=== PATIENT | male | born 1965 | race Caucasian/White ===

== ENCOUNTER 2017-10-16 17:33 | Observation (INO) | payer OTHER ==
[2017-10-16 17:36] VITALS: BP 146/94; PULSE 116; RESP 20; TEMP 98.7; O2SAT 98
[2017-10-16] MEDS ORDERED: LISI20TA (17:46)
[2017-10-16] MEDS ORDERED: PRAV40TA PO (17:46)
[2017-10-16] MEDS ORDERED: ASPI-516 CHEW (17:46)
[2017-10-16 17:53] VITALS: BP_SYST 131; BP_SYST 137; BP_DIAS 62; BP_DIAS 63; PULSE 114; PULSE 115; RESP 15; TEMP 98.1; O2SAT 99
--- NOTE | 2017-10-16 17:57 | PD ---
HPI Chief Complaint: Cardiac Complaint Time Seen by Provider: 17:42 Travel History International Travel<30 days: No Contact w/Intl Traveler<30days: No Traveled to known affect area: No History of Present Illness HPI Patient comes to the emergency department complaining of left-sided substernal chest pain I began shortly prior to arrival. Patient reports that he had just got done eating was walking down by the beach when symptoms began. Describes pain as a sudden sharp pain that only lasted briefly without radiation. Patient states he has associated shortness of breath, left arm tingling, and palpitations. Patient states that he did not take his aspirin last night but he did take a baby aspirin this morning and then took 2 more 81 mg aspirin prior to coming to the emergency department in case this was secondary to his heart. Patient reports symptoms have improved since initial onset. Denies anything making it better or worse. Patient did just recently find out from [place] 2 days ago. Patient denies any cardiac history or ever having a stress test. Patient reports sunburn came on yesterday. PFSH Past Medical History High Cholesterol: Yes Diminished Hearing: No Hypertension: Yes Tetanus Vaccination: < 5 Years Influenza Vaccination: No Past Surgical History Appendectomy: Yes Social History Alcohol Use: Yes (EVERYDAY) Tobacco Use: No Substance Use: No Allergies-Medications (Allergen,Severity, Reaction): Coded Allergies: No Known Allergies (Verified Allergy, Unknown, 10/16/17) Reported Meds & Prescriptions Reported Meds & Active Scripts Active Reported Pravachol (Pravastatin) 40 Mg Tab 40 Mg PO DAILY Aspirin 81 Mg Chew 81 Mg CHEW DAILY Lisinopril-Hctz 20-12.5 mg Tab (Lisinopril/Hydrochlorothiazide) 20 Mg-12.5 Mg Tablet Review of Systems Except as stated in HPI: all other systems reviewed are Neg Physical Exam Narrative GENERAL: Well-developed, overly nourished, in no acute distress, and non-ill appearing. SKIN: Sunburn noted upper chest and face. No blistering. Mildly tender. HEAD: Atraumatic. Normocephalic. EYES: Pupils equal and round. EOMI. No scleral icterus. No injection or drainage. ENT: No nasal bleeding or discharge. Mucous membranes pink and moist. NECK: Trachea midline. Supple. No nuclear rigidity. CARDIOVASCULAR: Regular rate and rhythm. No murmur appreciated. RESPIRATORY: No accessory muscle use. No respiratory distress. Clear to auscultation. Breath sounds equal bilaterally. GASTROINTESTINAL: Abdomen soft, non-tender, nondistended, and no guarding. Hepatic and splenic margins not palpable. Normal bowel sounds x4. No pulsatile mass. MUSCULOSKELETAL: No obvious deformities. No clubbing. No cyanosis. No edema. Full range of motion. NEUROLOGICAL: Awake and alert. No obvious cranial nerve deficits. Motor grossly within normal limits. Normal speech. PSYCHIATRIC: Appropriate mood and affect; insight and judgment normal. Data Data Last Documented VS Vital Signs Date Time Temp Pulse Resp B/P (MAP) Pulse Ox O2 Delivery O2 Flow Rate FiO2 10/16/17 19:08 109 18 154/68 (96) 98 Room Air 10/16/17 17:53 98.1 Orders Orders Electrocardiogram (10/16/17 ) Electrocardiogram (10/16/17 17:46) Basic Metabolic Panel (Bmp) (10/16/17 17:46) Ckmb (Isoenzyme) Profile (10/16/17 17:46) Complete Blood Count With Diff (10/16/17 17:46) Magnesium (Mg) (10/16/17 17:46) Prothrombin Time / Inr (Pt) (10/16/17 17:46) Act Partial Throm Time (Ptt) (10/16/17 17:46) Troponin I (10/16/17 17:46) Ecg Monitoring (10/16/17 17:46) Bilateral Bp Monitoring (10/16/17 17:46) Iv Access Insert/Monitor (10/16/17 17:46) Oximetry (10/16/17 17:46) Oxygen Administration (10/16/17 17:46) Sodium Chloride 0.9% Flush (Ns Flush) (10/16/17 18:00) Ct Pulmonary Angiogram (10/16/17 17:46) Chest, Pa & Lat (10/16/17 17:46) CKMB (10/16/17 17:50) CKMB% (10/16/17 17:50) Iohexol 350 Inj (Omnipaque 350 Inj) (10/16/17 18:59) Sodium Chlor 0.9% 1000 Ml Inj (Ns 1000 M (10/16/17 20:00) Admit Order (Ed Use Only) (10/16/17 ) Water Team Leader / Telemetry SOFÍA.Q8H (10/16/17 19:48) Vital Signs (Adult) Q4H (10/16/17 19:48) Notify Dr: Other (10/16/17 19:48) Activity Bed Rest With Brp (10/16/17 19:48) Vital Signs (Adult) Q4H (10/16/17 19:48) Cardiac Rhythm .As Directed (10/16/17 19:48) Notify Dr: Other .PRN (10/16/17 19:48) Notify Parameters (10/16/17 19:48) Resp Oxygen Nasal Cannula (10/16/17 ) Ckmb (Isoenzyme) Profile (10/16/17 20:50) Ckmb (Isoenzyme) Profile (10/16/17 23:50) Troponin I (10/16/17 20:50) Troponin I (10/16/17 23:50) Electrocardiogram (10/16/17 20:50) Electrocardiogram (10/16/17 23:50) ^ Obtain (10/16/17 19:48) Sodium Chloride 0.9% Flush (Ns Flush) (10/16/17 21:00) Nitroglycerin Sl (Nitrostat Sl) (10/16/17 20:00) Water Team Leader / Telemetry SOFÍA.Q8H (10/16/17 19:48) Labs Laboratory Tests Test 10/16/17 17:50 White Blood Count 20.4 TH/MM3 Red Blood Count 4.65 MIL/MM3 Hemoglobin 14.8 GM/DL Hematocrit 41.1 % Mean Corpuscular Volume 88.6 FL Mean Corpuscular Hemoglobin 31.8 PG Mean Corpuscular Hemoglobin Concent 35.9 % Red Cell Distribution Width 12.7 % Platelet Count 324 TH/MM3 Mean Platelet Volume 7.0 FL Neutrophils (%) (Auto) 87.1 % Lymphocytes (%) (Auto) 5.1 % Monocytes (%) (Auto) 7.0 % Eosinophils (%) (Auto) 0.5 % Basophils (%) (Auto) 0.3 % Neutrophils # (Auto) 17.8 TH/MM3 Lymphocytes # (Auto) 1.0 TH/MM3 Monocytes # (Auto) 1.4 TH/MM3 Eosinophils # (Auto) 0.1 TH/MM3 Basophils # (Auto) 0.1 TH/MM3 CBC Comment DIFF FINAL Differential Comment Prothrombin Time 10.2 SEC Prothromb Time International Ratio 1.0 RATIO Activated Partial Thromboplast Time 25.4 SEC Blood Urea Nitrogen 15 MG/DL Creatinine 0.96 MG/DL Random Glucose 112 MG/DL Calcium Level 8.9 MG/DL Magnesium Level 1.8 MG/DL Sodium Level 133 MEQ/L Potassium Level 3.4 MEQ/L Chloride Level 99 MEQ/L Carbon Dioxide Level 23.0 MEQ/L Anion Gap 11 MEQ/L Estimat Glomerular Filtration Rate 83 ML/MIN Total Creatine Kinase 111 U/L Creatine Kinase MB 1.4 NG/ML Troponin I LESS THAN 0.02 NG/ML Exceptions Acute Myocardial Infarction ASA Not Given on Arrival: Already taken by patient MDM Medical Decision Making Medical Screen Exam Complete: Yes Emergency Medical Condition: Yes Interpretation(s) EKG reviewed by Dr. Drake shows sinus tachycardia with ventricular rate of 114. No STEMI. Differential Diagnosis Acute coronary syndrome, arrhythmia, dehydration, PE, angina Narrative Course Patient was seen and examined. IV was established patient placed on cardiac monitoring. Initial laboratory radiological studies were ordered. Discussed all findings and plan of care with patient who is agreeable for admission to the chest pain center. All questions were answered. Discussed patient with Dr. Drake, who is in agreement plan of care and disposition. Patient does have an elevated white blood cell count that I suspect is secondary to patient' s sunburn as patient's chest x-ray and CT are both negative and patient denies any urinary symptoms. Patient was hydrated with IV fluid 1 L normal saline. Patient remained stable throughout ED course. Diagnosis Primary Impression: Chest pain Qualified Codes: R07.9 - Chest pain, unspecified Additional Impression: Sunburn Admitting Information Admitting Physician Requests: Observation Condition: Stable Colby Thompson October 16, 2017 17:57
[2017-10-16] MEDS ORDERED: SODIUM CHLORIDE 0.9% FLUSH 10 ML FLUSH IVF PRN (18:00)
[2017-10-16 18:20] LABS: AUTOMATED NEUTROPHIL # 17.8 TH/MM3 (1.8-7.7); BASOPHIL # 0.1 TH/MM3 (0-0.2); BASOPHIL % 0.3 % (0.0-2.0); EOSINOPHIL # 0.1 TH/MM3 (0-0.4); EOSINOPHIL % 0.5 % (0.0-4.0); HEMATOCRIT 41.1 % (39.0-51.0); HEMOGLOBIN 14.8 GM/DL (13.0-17.0); LYMPH % 5.1 % (9.0-44.0); MEAN CELL VOLUME 88.6 FL (80.0-100.0); MEAN CORPUSCULAR HEMOGLOBIN 31.8 PG (27.0-34.0); MEAN CORPUSCULAR HGB CONC 35.9 % (32.0-36.0); MONOCYTE # 1.4 TH/MM3 (0-0.9); NEUT % 87.1 % (16.0-70.0); PLATELET COUNT 324 TH/MM3 (150-450); RED BLOOD COUNT 4.65 MIL/MM3 (4.50-5.90); RED CELL DISTRIBUTION WIDTH 12.7 % (11.6-17.2); WHITE BLOOD COUNT 20.4 TH/MM3 (4.0-11.0)
[2017-10-16 18:36] LABS: PROTHROMBIN TIME - PATIENT 10.2 SEC (9.8-11.6)
[2017-10-16 18:41] LABS: BLOOD UREA NITROGEN 15 MG/DL (7-18); CALCIUM 8.9 MG/DL (8.5-10.1); CHLORIDE 99 MEQ/L (98-107); CREATININE 0.96 MG/DL (0.60-1.30); GLOMERULAR FILTRATION RATE 83 ML/MIN (>89); GLUCOSE,RANDOM 112 MG/DL (74-106); MAGNESIUM 1.8 MG/DL (1.5-2.5); SODIUM (NA) 133 MEQ/L (136-145)
[2017-10-16 18:44] LABS: TROPONIN I LESS THAN 0.02 NG/ML (0.02-0.05)
--- NOTE | 2017-10-16 18:57 | RADRPT ---
EXAM DATE/TIME: 10/16/2017 18:24 [facility] COMPARISON: No previous studies available for comparison. INDICATIONS : Chest pain. MEDICAL HISTORY : Hypertension. SURGICAL HISTORY : None. ENCOUNTER: Initial ACUITY: 1 day PAIN SCORE: 06/25 LOCATION: Bilateral chest FINDINGS: PA and lateral views of the chest demonstrate the lungs to be symmetrically aerated without evidence of mass, infiltrate or effusion. The cardiomediastinal contours are unremarkable. Osseous structure s are intact. CONCLUSION: No acute disease. Gera Levy MD on October 16, 2017 at 18:52 Board Certified Radiologist. This report was verified electronically.
[2017-10-16] MEDS ORDERED: IOHEXOL 350 MG/ML 10 ML VIAL (for RAD DIAG) IVCONTRAST ONE (18:59)
[2017-10-16 19:08] VITALS: BP 154/68; PULSE 109; RESP 18; O2SAT 98
--- NOTE | 2017-10-16 19:37 | RADRPT ---
EXAM DATE/TIME: 10/16/2017 18:49 [facility] COMPARISON: No previous studies available for comparison. INDICATIONS : Brief episode of chest pain. IV CONTRAST: 69 cc Omnipaque 350 (iohexol) IV RADIATION DOSE: 10.62 CTDIvol (mGy) MEDICAL HISTORY : Hypertension. SURGICAL HISTORY : None. ENCOUNTER: Initial ACUITY: 1 day PAIN SCALE: 0/10 LOCATION: chest TECHNIQUE: Volumetric scanning of the chest was performed using a pulmonary embolism protocol MIP images were re constructed. Using automated exposure control and adjustment of the mA and/or kV according to patien t size, radiation dose was kept as low as reasonably achievable to obtain optimal diagnostic quality images. DICOM format image data is available electronically for review and comparison. Follow-up recommendations for detected pulmonary nodules are based at a minimum on nodule size and pa tient risk factors according to Fleischner Society Guidelines. FINDINGS: No filling defects identified to suggest pulmonary embolic disease. Linear scarring right lower lobe. No effusion. No consolidation. No adenopathy. Mild coronary calcifications. No acute findings in the upper abdomen. CONCLUSION: 1. Negative for pulmonary embolic disease. Scarring right lower lobe. Gera Levy MD on October 16, 2017 at 19:30 Board Certified Radiologist. This report was verified electronically.
[2017-10-16] MEDS ORDERED: NITROGLYCERIN 0.4 MG SL 25 TABS/BTL SL PRN (20:00)
[2017-10-16] MEDS ORDERED: SODIUM CHLOR 0.9% 1000 ML INJ 1,000 ML IV ONE (20:00)
[2017-10-16 20:26] VITALS: O2SAT 98
[2017-10-16] MEDS: SODIUM CHLORIDE 0.9% FLUSH 10 ML FLUSH IV FLUSH SCH (20:56)
[2017-10-16 21:20] VITALS: BP 141/69; PULSE 85; RESP 16; TEMP 98.4; O2SAT 97
[2017-10-16 21:35] LABS: TROPONIN I LESS THAN 0.02 NG/ML (0.02-0.05)
[2017-10-17 00:25] LABS: TROPONIN I LESS THAN 0.02 NG/ML (0.02-0.05)
[2017-10-17 00:46] VITALS: BP 104/51; PULSE 78; RESP 16; TEMP 98.5; O2SAT 93
[2017-10-17 04:12] VITALS: BP 101/55; PULSE 84; RESP 16; TEMP 98; O2SAT 96
[2017-10-17] MEDS ORDERED: ONDANSETRON HCL 4 MG/2 ML VIAL IV PUSH PRN (07:30)
[2017-10-17] MEDS ORDERED: ACETAMINOPHEN 500 MG CPLT PO PRN (07:30)
--- NOTE | 2017-10-17 08:41 | PD.CARD.PN ---
Subjective Subjective Remarks Patient's medical record was reviewed, laboratory work EKG and radiology were reviewed and assessed. The patient was personally seen and examined and assessment and plan establish Discussed with nurse practitioner This is a 51-year-old gentleman visiting in this area with atypical presentation of sharp left chest pain of very brief duration. However aspects of his history did suggest possibility of cardiac etiology along with his history of obesity hyperlipidemia and hypertension. Also noted that he has a fairly high alcohol intake of about 8 beers a day. This was discussed and he was cautioned in this regard. Objective Medications Current Medications Medications (Trade) Dose Ordered Sig/Jair Route Start Time Stop Time Status Last Admin (NS Flush) 2 ml UNSCH PRN IVF 10/16/17 18:00 10/16/17 17:57 (NS Flush) 2 ml BID IV FLUSH 10/16/17 21:00 (Nitrostat Sl) 0.4 mg Q5M PRN SL 10/16/17 20:00 (Tylenol) 500 mg Q4H PRN PO 10/17/17 07:30 (Zofran Inj) 4 mg Q6H PRN IV PUSH 10/17/17 07:30 (Aspirin) 325 mg DAILY PO 10/17/17 09:00 (Pravachol) 40 mg DAILY PO 10/17/17 09:00 UNV (Prinivil) 20 mg ONCE ONCE PO 10/17/17 09:00 10/17/17 09:01 (Microzide) 12.5 mg DAILY PO 10/17/17 09:00 (KCl) 20 meq ONCE ONCE PO 10/17/17 09:00 10/17/17 09:01 Vital Signs / I&O Vital Signs Date Time Temp Pulse Resp B/P (MAP) Pulse Ox O2 Delivery O2 Flow Rate FiO2 10/17/17 04:12 98.0 84 16 101/55 (70) 96 10/17/17 00:46 98.5 78 16 104/51 (68) 93 10/16/17 21:20 98.4 85 16 141/69 (93) 97 10/16/17 21:12 10/16/17 20:26 98 10/16/17 19:08 109 18 154/68 (96) 98 Room Air 10/16/17 17:53 98.1 115 15 137/62 (87) 99 Room Air 10/16/17 17:53 99 Room Air 10/16/17 17:53 98.1 114 15 131/63 (85) 99 Room Air 10/16/17 17:46 118 99 Room Air 10/16/17 17:36 98.7 116 20 146/94 (111) 98 Physical Exam 6 foot 2 300 pound sunburned white male in no acute distress. Chest is clear to auscultation with no rales wheezes or rhonchi Cardiovascular regular sinus rhythm with no gallops rubs or murmurs Remaining exam is as documented Laboratory Laboratory Tests Test 10/16/17 17:50 10/16/17 20:50 10/16/17 23:55 White Blood Count 20.4 TH/MM3 Red Blood Count 4.65 MIL/MM3 Hemoglobin 14.8 GM/DL Hematocrit 41.1 % Mean Corpuscular Volume 88.6 FL Mean Corpuscular Hemoglobin 31.8 PG Mean Corpuscular Hemoglobin Concent 35.9 % Red Cell Distribution Width 12.7 % Platelet Count 324 TH/MM3 Mean Platelet Volume 7.0 FL Neutrophils (%) (Auto) 87.1 % Lymphocytes (%) (Auto) 5.1 % Monocytes (%) (Auto) 7.0 % Eosinophils (%) (Auto) 0.5 % Basophils (%) (Auto) 0.3 % Neutrophils # (Auto) 17.8 TH/MM3 Lymphocytes # (Auto) 1.0 TH/MM3 Monocytes # (Auto) 1.4 TH/MM3 Eosinophils # (Auto) 0.1 TH/MM3 Basophils # (Auto) 0.1 TH/MM3 CBC Comment DIFF FINAL Differential Comment Prothrombin Time 10.2 SEC Prothromb Time International Ratio 1.0 RATIO Activated Partial Thromboplast Time 25.4 SEC Blood Urea Nitrogen 15 MG/DL Creatinine 0.96 MG/DL Random Glucose 112 MG/DL Calcium Level 8.9 MG/DL Magnesium Level 1.8 MG/DL Sodium Level 133 MEQ/L Potassium Level 3.4 MEQ/L Chloride Level 99 MEQ/L Carbon Dioxide Level 23.0 MEQ/L Anion Gap 11 MEQ/L Estimat Glomerular Filtration Rate 83 ML/MIN Total Creatine Kinase 111 U/L 88 U/L 78 U/L Creatine Kinase MB 1.4 NG/ML Troponin I LESS THAN 0.02 NG/ML LESS THAN 0.02 NG/ML LESS THAN 0.02 NG/ML Imaging Last 24 hours Impressions Chest X-Ray 10/16/[id number] Signed Impressions: Service Date/Time: October 18:24 - CONCLUSION: No acute disease. Gera Levy MD CT Angiography [id number]/16/[id number] Signed Impressions: Service Date/Time: October 18:49 - CONCLUSION: 1. Negative for pulmonary embolic disease. Scarring right lower lobe. Gera Levy MD Assessment and Plan Assessment and Plan Will evaluate per standard protocol and perform an exercise stress test. If unremarkable he will be discharged to follow-up on an outpatient basis with his primary care physician Discussed Condition With Discussed with nurse practitioner and with the patient Kash Shaver MD October 17, 2017 08:41
--- NOTE | 2017-10-17 08:41 | HHI.HP ---
HPI Primary Care Physician Primary Care Physician-[place] Chief Complaint Chest pain History of Present Illness 51-year-old male with history of hypertension and hyperlipidemia presents emergency room for further evaluation chest pain. Onset 4 PM yesterday afternoon while walking on beach. Location substernal. Characterized as sharp. No radiation. Severity moderate. Duration seconds. No associated symptoms of nausea, vomiting, dyspnea, diaphoresis, dizziness. No known precipitating or relieving factors. Denies similar pain in the past. Immediately after chest pain developed left arm "tingling." Visiting from [place]. After chest discomfort he walked to [facility], took 2 baby aspirins and 1 of his blood pressure medications, and laid on the bed. [place] as though his heart was "racing" while laying on bed, however also reports anxiety around chest discomfort episode. Notified his brother and they both decided to call paramedics for further evaluation. Remained chest pain free since arriving to hospital. Review of Systems General: No fatigue,weakness, fever, chills, recent illness, or change in appetite. Has been in his general state of health. HEENT: No [place], no vision changes, no nasal congestion or drainage, no dysphasia CV: As stated above. No further chest discomfort episodes or palpitations since first and only chest discomfort yesterday afternoon. RESP: No SOB, cough, or wheeze. GI: No nausea, vomiting, or bowel changes. : No dysuria, urgency, or frequency EXT: No lower leg edema, no paraesthesias MS: No discomfort or change in ROM. History of "throwing my back out" and thinks he may have "thrown back out recently on October 14 after carrying heavy suitcase. NEURO: No difficulty with balance, LOC, motor/sensory deficits PSYCH: No anxiety, depression, or suicidal ideation. Currently situational stress. SKIN: No rashes, no concerning lesions Past Family Social History Allergies: Coded Allergies: No Known Allergies (Verified Allergy, Unknown, 10/16/17) Past Medical History Hyperlipidemia, hypertension Past Surgical History Appendectomy, bilateral biceps repair Reported Medications Reported Meds & Active Scripts Active Reported Pravachol (Pravastatin) 40 Mg Tab 40 Mg PO DAILY Aspirin 81 Mg Chew 81 Mg CHEW DAILY Lisinopril-Hctz 20-12.5 mg Tab (Lisinopril/Hydrochlorothiazide) 20 Mg-12.5 Mg Tablet Active Ordered Medications Current Medications Medications (Trade) Dose Ordered Sig/Jair Route Start Time Stop Time Status Last Admin (NS Flush) 2 ml UNSCH PRN IVF 10/16/17 18:00 10/16/17 17:57 (NS Flush) 2 ml BID IV FLUSH 10/16/17 21:00 (Nitrostat Sl) 0.4 mg Q5M PRN SL 10/16/17 20:00 (Tylenol) 500 mg Q4H PRN PO 10/17/17 07:30 (Zofran Inj) 4 mg Q6H PRN IV PUSH 10/17/17 07:30 (Aspirin) 325 mg DAILY PO 10/17/17 09:00 (Pravachol) 40 mg DAILY PO 10/17/17 09:00 UNV Family History Noncontributory for early onset cardiovascular disease Social History Known hypertension and hyperlipidemia. No known coronary artery disease or diabetes. Former smoker, quit smoking early 20s. Endorses daily alcohol use of 7-8 beers daily. Reports rarely smoking marijuana. . Visiting [place]. Works as a fabricator. Past cardiac testing None Physical Exam Vital Signs Vital Signs Date Time Temp Pulse Resp B/P (MAP) Pulse Ox O2 Delivery O2 Flow Rate FiO2 10/17/17 04:12 98.0 84 16 101/55 (70) 96 10/17/17 00:46 98.5 78 16 104/51 (68) 93 10/16/17 21:20 98.4 85 16 141/69 (93) 97 10/16/17 21:12 10/16/17 20:26 98 10/16/17 19:08 109 18 154/68 (96) 98 Room Air 10/16/17 17:53 98.1 115 15 137/62 (87) 99 Room Air 10/16/17 17:53 99 Room Air 10/16/17 17:53 98.1 114 15 131/63 (85) 99 Room Air 10/16/17 17:46 118 99 Room Air 10/16/17 17:36 98.7 116 20 146/94 (111) 98 Physical Exam GENERAL: Alert WN, WD, NAD, pleasant, obese, male HEAD: NC, AT EYES: Sclera clear, conjunctiva without injection, pupils equal and round ENT: Mucous membranes pink and moist CV: RRR, without murmur, rub, gallop, no JVD, S1-S2 no S3-S4. Chest wall nontender with palpation. RESP: Clear lungs throughout bilateral, no crackles, wheeze, rhonchi, symmetrical chest rise, nonlabored, able to speak in full sentences ABD: Soft, NT, ND, no masses, positive bowel tones, obese EXT: Pulses +2x4, no dependent edema MS: Normal tone x4 extremities, nontender, no obvious deformities, full range of motion NEURO: CN II through CN XII grossly intact, motor strength 5/5 PSYCH: A+O -3, pleasant affect, appropriate speech, mood, insight and judgment SKIN: Normal turgor, normal texture, no lesions, no rashes, sluggish cap refill , even hair distribution, acute solar damage Laboratory Laboratory Tests Test 10/16/17 17:50 10/16/17 20:50 10/16/17 23:55 White Blood Count 20.4 Red Blood Count 4.65 Hemoglobin 14.8 Hematocrit 41.1 Mean Corpuscular Volume 88.6 Mean Corpuscular Hemoglobin 31.8 Mean Corpuscular Hemoglobin Concent 35.9 Red Cell Distribution Width 12.7 Platelet Count 324 Mean Platelet Volume 7.0 Neutrophils (%) (Auto) 87.1 Lymphocytes (%) (Auto) 5.1 Monocytes (%) (Auto) 7.0 Eosinophils (%) (Auto) 0.5 Basophils (%) (Auto) 0.3 Neutrophils # (Auto) 17.8 Lymphocytes # (Auto) 1.0 Monocytes # (Auto) 1.4 Eosinophils # (Auto) 0.1 Basophils # (Auto) 0.1 CBC Comment DIFF FINAL Differential Comment Prothrombin Time 10.2 Prothromb Time International Ratio 1.0 Activated Partial Thromboplast Time 25.4 Blood Urea Nitrogen 15 Creatinine 0.96 Random Glucose 112 Calcium Level 8.9 Magnesium Level 1.8 Sodium Level 133 Potassium Level 3.4 Chloride Level 99 Carbon Dioxide Level 23.0 Anion Gap 11 Estimat Glomerular Filtration Rate 83 Total Creatine Kinase 111 88 78 Creatine Kinase MB 1.4 Troponin I LESS THAN 0.02 LESS THAN 0.02 LESS THAN 0.02 Result Diagram: 10/16/17 1753 10/16/17 1750 Imaging Last 48 hours Impressions Chest X-Ray 10/16/17 [id number] Signed Impressions: Service Date/Time: October 18:24 - CONCLUSION: No acute disease. Gera Levy MD CT Angiography 10/16/17 [id number] Signed Impressions: Service Date/Time: October 18:49 - CONCLUSION: 1. Negative for pulmonary embolic disease. Scarring right lower lobe. Gera Levy MD Course EKG NSR, no st changes. Caprini VTE Risk Assessment Caprini VTE Risk Assessment: No/Low Risk (score <= 1) Caprini Risk Assessment Model Point Value = 1 Point Value = 2 Point Value = 3 Point Value = 5 Age 41-60 Minor surgery BMI > 25 kg/m2 Swollen legs Varicose veins or History of unexplained or recurrent spontaneous Oral contraceptives or hormone replacement Sepsis (< 1 month) Serious lung disease, including pneumonia (< 1 month) Abnormal pulmonary function Acute myocardial infarction Congestive heart failure (< 1 month) History of inflammatory bowel disease Medical patient at bed rest Age 61-74 Arthroscopic surgery Major open surgery (> 45 min) Laparoscopic surgery (> 45 min) Malignancy Confined to bed (> 72 hours) Immobilizing plaster cast Central venous access Age >= 75 History of VTE Family history of VTE Factor V Leiden Prothrombin [id number] Lupus anticoagulant Anticardiolipin antibodies Elevated serum homocysteine Heparin-induced thrombocytopenia Other congenital or acquired thrombophilia Stroke (< 1 month) Elective arthroplasty Hip, pelvis, or leg fracture Acute spinal cord injury (< 1 month) Prophylaxis Regimen Total Risk Factor Score Risk Level Prophylaxis Regimen 0-1 Low Early ambulation 2 Moderate Order ONE of the following: *Sequential Compression Device (SCD) *Heparin 5000 units SQ BID 3-4 Higher Order ONE of the following medications: *Heparin 5000 units SQ TID *Enoxaparin/Lovenox 40 mg SQ daily (WT < 150 kg, CrCl > 30 mL/min) *Enoxaparin/Lovenox 30 mg SQ daily (WT < 150 kg, CrCl > 10-29 mL/min) *Enoxaparin/Lovenox 30 mg SQ BID (WT < 150 kg, CrCl > 30 mL/min) AND/OR *Sequential Compression Device (SCD) 5 or more Highest Order ONE of the following medications: *Heparin 5000 units SQ TID (Preferred with Epidurals) *Enoxaparin/Lovenox 40 mg SQ daily (WT < 150 kg, CrCl > 30 mL/min) *Enoxaparin/Lovenox 30 mg SQ daily (WT < 150 kg, CrCl > 10-29 mL/min) *Enoxaparin/Lovenox 30 mg SQ BID (WT < 150 kg, CrCl > 30 mL/min) AND *Sequential Compression Device (SCD) Assessment and Plan Assessment and Plan #1 Atypical chest pain-admitted chest pain center. Ruled out 3 sets of EKGs, cardiac enzymes, and monitor on telemetry overnight. Seen and evaluated by Dr. Kash Shaver. Proceed with exercise cardiac testing. If unremarkable, plans to discharge home with follow-up with PCP. #2 History of hypertension-continue lisinopril and hydrochlorothiazide #3 History of hyperlipidemia-continue pravastatin #4 Alcohol misuse-discussed recommended alcohol of intake for men of no more than 2 alcohol drinks daily. Encouraged him to decrease his alcohol intake. Reina Bravo October 17, 2017 08:41
[2017-10-17] MEDS: SODIUM CHLORIDE 0.9% FLUSH 10 ML FLUSH IV FLUSH SCH (08:44)
[2017-10-17 08:59] VITALS: BP 105/55; PULSE 75; RESP 18; TEMP 97.6; O2SAT 97
[2017-10-17] MEDS ORDERED: HYDROCHLOROTHIAZIDE 12.5 MG CAP PO SCH (09:00)
[2017-10-17] MEDS ORDERED: POTASSIUM CHLORIDE 20 MEQ CONTROLLED RELEASE TAB PO ONE (09:00)
[2017-10-17] MEDS ORDERED: LISINOPRIL 20 MG TAB PO ONE (09:00)
[2017-10-17] MEDS ORDERED: ASPIRIN 325 MG TAB PO SCH (09:00)
[2017-10-17] MEDS ORDERED: PRAVASTATIN SOD 40 MG TAB PO SCH (09:00)
--- NOTE | 2017-10-17 10:23 | TR ---
Date Performed: 10/17/2017 Time Performed: 09:51:30 DOCTOR: Kash Shaver DRUG LIST: CLINICAL HISTORY: CHEST PAIN REASON FOR TEST: REASON FOR ENDING: OBSERVATION: CONCLUSION: Daron protocol completed. Stopped sec to exceeding target heart rate and leg fatigue . Maximum UU=918 Target HR Achieved=91.0% Maximum SY=786/60 Total Exercise Time=8:01. No reprod chest discomfort. No ectopy. St t segment unchanges, nondiagnostic. Good exercise tolerance. Normal bp res ponse. Recovery quick and unremarkable. COMMENTS:
--- NOTE | 2017-10-17 10:24 | HHI.DCPOC ---
Discharge Care Plan Diagnosis: (1) Atypical chest pain (2) History of hypertension (3) History of hyperlipidemia Goals to Promote Your Health * To prevent worsening of your condition and complications * To maintain your health at the optimal level Directions to Meet Your Goals Take your medications as prescribed Follow your dietary instruction Follow activity as directed Keep your appointments as scheduled Take your immunizations and boosters as scheduled If your symptoms worsen call your PCP, if no PCP go to Urgent Care Center or Emergency Room Smoking is Dangerous to Your Health. Avoid second hand smoke Call the 24-hour hour crisis hotline for domestic abuse at Reina Bravo October 17, 2017 10:24
--- NOTE | 2017-10-17 15:44 | EKG ---
Date Performed: 10/16/2017 Time Performed: 23:28:32 PTAGE: 51 years EKG: Sinus rhythm POSSIBLE RIGHT VENTRICULAR CONDUCTION DELAY No significant change ABNORMAL ECG PREVIOUS TRACING : 10/16/2017 20.52 DOCTOR: Kash Shaver Interpretating Date/Time 10/17/2017 15:43:46
--- NOTE | 2017-10-17 15:45 | EKG ---
Date Performed: 10/16/2017 Time Performed: 20:52:43 PTAGE: 51 years EKG: Sinus rhythm POSSIBLE RIGHT VENTRICULAR CONDUCTION DELAY BORDERLINE ECG Rate has slowed somewhat but largely unch anged PREVIOUS TRACING : 10/16/2017 17.48 DOCTOR: Kash Shaver Interpretating Date/Time 10/17/2017 15:44:35
--- NOTE | 2017-10-17 15:48 | EKG ---
Date Performed: 10/16/2017 Time Performed: 17:48:16 PTAGE: 51 years EKG: SINUS TACHYCARDIA POSSIBLE RIGHT VENTRICULAR CONDUCTION DELAY No significant change ABNORMA L RHYTHM ECG NO PREVIOUS TRACING DOCTOR: aKsh Shaver Interpretating Date/Time 10/17/2017 15:46:05
== END 2017-10-17 12:08 | disposition home or self-care (01) ==
LOC: NEPE 17:33 → NEDA 19:53 → NEPGCP 21:10
DX: R07.89 Other chest pain (principal); E78.5 Hyperlipidemia, unspecified; R20.2 Paresthesia of skin; R06.02 Shortness of breath; R00.2 Palpitations; R94.31 Abnormal electrocardiogram [ECG] [EKG]; E78.00 Pure hypercholesterolemia, unspecified; I10 Essential (primary) hypertension; D72.829 Elevated white blood cell count, unspecified; Z87.891 Personal history of nicotine dependence
CPT/HCPCS: 71046; 71275; 80048; 82550; 82552; 83735; 84484; 85025; 85610; 85730; 93005; 93017; 96360; 99285; G0378; J7030; Q9967